=== PATIENT | female | born 1945 | race Caucasian/White ===

== ENCOUNTER 2018-03-13 11:34 | Inpatient (IN) | payer OTHER, MEDICARE ==
[2018-03-13] MEDS ORDERED: NS 1,000 ML IV ONE (12:55)
[2018-03-13 13:28] LABS: PLATELET COUNT 278 10^3/uL (150-400)
[2018-03-13 13:38] LABS: INR 1.09 (0.83-1.16)
--- NOTE | 2018-03-13 13:45 | CPEKG ---
Heart Rate: 61 RR Interval: 984 P-R Interval: 208 QRSD Interval: 80 QT Interval: 428 QTC Interval: 431 P [place]: 59 QRS [place]: -21 T Wave [place]: -11 EKG Severity - BORDERLINE ECG - EKG Impression: SINUS RHYTHM EKG Impression: BORDERLINE LEFT AXIS DEVIATION EKG Impression: BORDERLINE R WAVE PROGRESSION, ANTERIOR LEADS EKG Impression: BORDERLINE T ABNORMALITIES, DIFFUSE LEADS Electronically Signed By: Adebayo Polanco 16-Mar-2018 07:01:30
--- NOTE | 2018-03-13 13:54 | EDPHY ---
H & P Stated Complaint: rectal bleeding started today Time Seen by Provider: 03/13/18 11:40 HPI/ROS: CHIEF COMPLAINT: Rectal bleeding HISTORY OF PRESENT ILLNESS: This is a 72-year-old female with history of significant ulcerative colitis leading to a total colectomy with a ileal pouch about 20 years ago. Patient presents today reporting that she had 2 episodes of bloody stools/diarrhea this morning. The patient's to the stools are quite loose. This morning she went to the bathroom and had large volume of bloody stool. It occurred to 2nd time. She then presents to the emergency department. She has had a history of a similar episode in the past which resulted in stapling procedure performed of her lower rectum or J pouch, patient is not entirely clear. Of note, the patient has recently been started on Xarelto for atrial fibrillation. She denies any fevers or chills, any nausea or vomiting, any urinary complaints , any lightheadedness or headache. Patient had a bowel movement on arrival to the emergency department which is dark brown in color, no blood seen. REVIEW OF SYSTEMS: Aside from elements discussed in the HPI, a comprehensive 10-point review of systems was reviewed and is negative. PAST MEDICAL HISTORY: Atrial fibrillation, status post colectomy, history of atrial fibrillation, on Xarelto as well as propafenone. SOCIAL HISTORY: Nonsmoker. No alcohol. VITAL SIGNS Reviewed by me. Heart rate 65, 114/46. GENERAL: Well-developed, well-nourished, resting comfortably in no respiratory distress. HEENT: Atraumatic. Eyes: No icterus, no injection. Mouth: moist mucous membranes. No erythema or lesions. Neck: supple with no adenopathy. LUNGS: Clear to auscultation bilaterally, no wheezes, rhonchi or rales. CARDIAC: Regular rate and rhythm, no rubs, murmurs or gallops. ABDOMEN: Soft, nontender, nondistended, bowel sounds normal. BACK: No CVA tenderness. RECTAL: External hemorrhoid is present. Brown stool on the glove. EXTREMITIES: No trauma. No edema. Range of motion is normal throughout. NEURO: Alert and oriented, grossly nonfocal. SKIN: Warm and dry, no rash. PSYCHIATRIC: Normal mentation, no agitation. - Personal History Current Tetanus Diphtheria and Acellular Pertussis (TDAP): Unsure - Medical/Surgical History Hx Asthma: No Hx Chronic Respiratory Disease: No Hx Diabetes: No Hx Cardiac Disease: No Hx Renal Disease: No Hx Cirrhosis: No Hx Alcoholism: No Hx HIV/AIDS: No Hx Splenectomy or Spleen Trauma: No Other PMH: a fib, ulcerative colitis status post total colectomy 20 years ago, bowel surgery x 2 stapling - Social History Smoking Status: Never smoked Constitutional: Initial Vital Signs Temperature (C) 37.1 C 03/13/18 11:39 Heart Rate 65 03/13/18 11:39 Respiratory Rate 16 03/13/18 11:39 Blood Pressure 114/64 03/13/18 11:39 O2 Sat (%) 94 03/13/18 11:39 O2 Delivery Mode Room Air Allergies/Adverse Reactions: iodine Allergy (Verified 03/13/18 11:44) Sulfa (Sulfonamide Antibiotics) Allergy (Verified 03/13/18 11:44) Home Medications: Medication Instructions Recorded Acetaminophen [Acetaminophen ER] 650 mg PO BID 03/13/18 Aspirin [Aspirin 325 mg (*)] 325 mg PO DAILY PRN 03/13/18 Cholecalciferol Vit D3 [Vitamin D3 2,000 units PO DAILY 03/13/18 2000 units tab (OTC)] Herbals/Supplements -Info Only 1 ea PO DAILY 03/13/18 Propafenone HCl 225 mg PO Q8 03/13/18 Rivaroxaban [Xarelto] 20 mg PO DAILY18 03/13/18 Medical Decision Making ED Course/Re-evaluation: Stool for occult blood is positive. EKG: Sinus rhythm, poor R-wave progression, T-wave flattening V3 through V6 when compared to prior. IV was placed. Patient received a L normal saline. Labs demonstrate a hemoglobin/hematocrit of 12/35. Chemistries: Normal troponin. Normal electrolytes. Patient had a 2nd bowel movement while in the emergency department which is watery, black stool. Course discussed with Dr Portillo. Patient will be admitted to med surg. Patient requested the transfer by private car. She understands the safest way to be transferred is by ambulance. She has a family member who is a sober, competent adult will drive her to [facility]. We will discharge her to transfer by POV when we have a bed available at the [facility]. I spoke to Dr. Ashwin Mccormack from [facility] who will follow up with the patient in the hospital. Differential Diagnosis: Differential diagnosis of this patient's lower GI bleeding was considered including but not limited to upper GI hemorrhage, rectal bleeding, hemorrhoids, anal fissure, bleeding from ileal pouch. Consult/Admit Bed Type: Dr. Portillo, [facility] - Data Points Laboratory Results: Laboratory Results 03/13/18 13:20 03/13/18 13:20 Medications Given: Acetaminophen (Tylenol) 650 mg PO BID ESTRADA Stop: 09/10/18 08:59 Last Admin: 03/14/18 08:39 Dose: 650 mg Cholecalciferol (Vitamin D) 2,000 units PO DAILY ESTRADA Stop: 09/10/18 08:59 Last Admin: 03/14/18 08:40 Dose: Not Given Dextrose/Sodium Chloride (D5w 1/2 Ns) 1,000 mls @ 100 mls/hr IV CONT ESTRADA Stop: 09/09/18 14:44 Last Admin: 03/14/18 03:05 Dose: 1,000 mls Propafenone HCl (Rythmol Sr) 225 mg PO Q8 ESTRADA Stop: 09/10/18 00:00 Last Admin: 03/14/18 05:10 Dose: 225 mg Discontinued Medications Sodium Chloride (Ns) 1,000 mls @ 0 mls/hr IV ONCE ONE; Wide Open PRN Reason: Protocol Stop: 03/13/18 12:56 Last Admin: 03/13/18 13:33 Dose: 1,000 mls Polyethylene Glycol/Electrolytes (Gavilyte - G) 4,000 ml PO ONCE ONE Stop: 03/13/18 18:34 Last Admin: 03/13/18 18:43 Dose: 4,000 ml Departure - Departure Disposition: [facility] Inpatient Acute Clinical Impression: Lower GI bleeding Condition: Fair
[2018-03-13] MEDS ORDERED: ONDANSETRON DISINTEGRATING 4 MG TAB PO PRN (14:44)
[2018-03-13] MEDS ORDERED: ONDANSETRON 4 MG/2 ML VIAL IVP PRN (14:44)
[2018-03-13] MEDS ORDERED: ACETAMINOPHEN 325 MG TAB PO PRN (14:44)
--- NOTE | 2018-03-13 16:09 | PDGENHP ---
History and Physical - Chief Complaint Acute hematochezia - History of Present Illness Primary care provider: Ernestina JEWELL Primary cards provider: Dr. Carmel Guerrero HPI: 72-year-old female presenting with acute hematochezia characterized as bright red blood per rectum with onset of symptoms this morning, and duration of 1 subsequent, intermittent bloody bowel movement thereafter. She also had associated left lower quadrant discomfort and has had 2 melanotic appearing bowel movements at urgent care. The discomfort is exacerbated by palpation, quiescent at rest. Prior to her onset of symptoms, the patient had otherwise been feeling well and been taking all of her home medications. She reports increased physicality/straining secondary to a recent move. History Information - Allergies/Home Medication List Allergies/Adverse Reactions: iodine Allergy (Verified 03/13/18 11:44) Sulfa (Sulfonamide Antibiotics) Allergy (Verified 03/13/18 11:44) Home Medications: Propafenone HCl [Rythmol 150mg (*)] 225 mg PO Q8H 12/03/14 [Last Taken 12/02/14] Tylenol 03/13/18 [Last Taken Unknown] Xarelto 03/13/18 [Last Taken Unknown] I have personally reviewed and updated: family history, medical history, social history, surgical history - Past Medical History atrial fibrillation (Paroxysmal, on Xarelto and Rythmol, diagnosed in 2013) Additional medical history: Obstructive sleep apnea on CPAP. Ulcerative colitis with previous history of total colectomy and internal ileal pouch with previous history of ileal pouch ulcerations in 2014. Rheumatic fever as a child - Surgical History Additional surgical history: Total colectomy and ileal pouch - Family History Additional family history: Sibling with rectal surgery and partial rectal removal, no family history of GI malignancies - Social History Smoking Status: Never smoked Alcohol Use: Occasionally Drug Use: None Additional social history: Independent in ADLs Review of Systems Review of Systems: ROS: 10pt was reviewed & negative except for what was stated in HPI & below Gastrointestinal: Reports: black stools, rectal bleeding, abdominal pain Physical Exam Physical Exam: Temp Pulse Resp BP Pulse Ox 37.0 C 65 18 118/62 96 03/13/18 15:27 03/13/18 15:27 03/13/18 15:27 03/13/18 15:27 03/13/18 15:27 Constitutional: no apparent distress, appears nourished, not in pain, obese Eyes: PERRL, anicteric sclera, EOMI Ears, Nose, Mouth, Throat: moist mucous membranes, hearing normal, ears appear normal, no oral mucosal ulcers Cardiovascular: regular rate and rhythym, no murmur, rub, or gallop, No edema Respiratory: no respiratory distress, no rales or rhonchi, clear to auscultation Gastrointestinal: normoactive bowel sounds, no palpable masses, tenderness (mild , 2/2 mod-deep palpation LLQ), No guarding, No distension Skin: warm, No erythema, No rash Neurologic: AAOx3, sensation intact bilaterally, No weakness Psychiatric: interacting appropriately, not anxious, not encephalopathic, thought process linear Lab Data & Imaging Review 03/13/18 13:20 03/13/18 13:20 WBC 7.48 10^3/uL (3.80-9.50) 03/13/18 13:20 RBC 4.24 10^6/uL (4.18-5.33) 03/13/18 13:20 Hgb 12.6 g/dL (12.6-16.3) 03/13/18 13:20 Hct 37.6 % (38.0-47.0) L 03/13/18 13:20 MCV 88.7 fL (81.5-99.8) 03/13/18 13:20 MCH 29.7 pg (27.9-34.1) 03/13/18 13:20 MCHC 33.5 g/dL (32.4-36.7) 03/13/18 13:20 RDW 13.2 % (11.5-15.2) 03/13/18 13:20 Plt Count 278 10^3/uL (150-400) 03/13/18 13:20 MPV 8.6 fL (8.7-11.7) L 03/13/18 13:20 Neut % (Auto) 59.3 % (39.3-74.2) 03/13/18 13:20 Lymph % (Auto) 28.2 % (15.0-45.0) 03/13/18 13:20 [place] % (Auto) 9.0 % (4.5-13.0) 03/13/18 13:20 Eos % (Auto) 2.5 % (0.6-7.6) 03/13/18 13:20 Baso % (Auto) 0.7 % (0.3-1.7) 03/13/18 13:20 Nucleat RBC Rel Count 0.0 % (0.0-0.2) 03/13/18 13:20 Absolute Neuts (auto) 4.44 10^3/uL (1.70-6.50) 03/13/18 13:20 Absolute Lymphs (auto) 2.11 10^3/uL (1.00-3.00) 03/13/18 13:20 Absolute Monos (auto) 0.67 10^3/uL (0.30-0.80) 03/13/18 13:20 Absolute Eos (auto) 0.19 10^3/uL (0.03-0.40) 03/13/18 13:20 Absolute Basos (auto) 0.05 10^3/uL (0.02-0.10) 03/13/18 13:20 Absolute Nucleated RBC 0.00 10^3/uL (0-0.01) 03/13/18 13:20 Immature Gran % 0.3 % (0.0-1.1) 03/13/18 13:20 Immature Gran # 0.02 10^3/uL (0.00-0.10) 03/13/18 13:20 PT 14.0 SEC (12.0-15.0) 03/13/18 13:20 INR 1.09 (0.83-1.16) 03/13/18 13:20 Sodium 139 mEq/L (135-145) 03/13/18 13:20 Potassium 4.0 mEq/L (3.3-5.0) 03/13/18 13:20 Chloride 104 mEq/L (97-110) 03/13/18 13:20 Carbon Dioxide 24 mEq/l (22-31) 03/13/18 13:20 Anion Gap 11 mEq/L (8-16) 03/13/18 13:20 BUN 15 mg/dL (7-23) 03/13/18 13:20 Creatinine 0.6 mg/dL (0.6-1.0) 03/13/18 13:20 Estimated GFR > 60 03/13/18 13:20 Glucose 89 mg/dL (70-100) 03/13/18 13:20 Calcium 8.7 mg/dL (8.5-10.4) 03/13/18 13:20 Troponin I < 0.012 ng/mL (0.000-0.034) 03/13/18 13:20 Stool Occult Bld Scrn POSITIVE (NEGATIVE) H 03/13/18 12:15 Visualized and Interpreted EKG results: Yes EKG Interpretation: Positive for: other (Normal sinus rhythm with T-wave inversion in lead 3) Assessment & Plan Assessment: 72-year-old female presenting with acute lower gastrointestinal hemorrhage in the setting of history of ulcerative colitis and previous history of ileal pouch ulcerations Plan: 1. Acute lower gastrointestinal hemorrhage. New problem this provider, further workup indicated. Fecal occult blood positive with 2 bloody bowel movements and 2 potentially melanotic bowel movements on the day of presentation. She is currently hemodynamically stable, but given her ongoing symptoms she warrants urgent endoscopy, particularly given that she experienced ileal pouch ulcerations in 2014. -reviewed outside records including 12/04/[address] Julio Adam, he recounts the patient had ileal pouch ulcerations requiring epinephrine and surgical clipping by Dr. Jennifer Araujo, and the patient was discharged with outpatient follow-up and recommendations to hold her Xarelto -will hold Xarelto -discussed with Dr. Mccormack, he recommends bowel prep for possible EGD/colonoscopy in AM -continue on clears and NPO after midnight -monitor hemoglobin level and if dropping after receiving IV fluids, then monitor more closely for potential acute blood loss anemia -check CRP and ESR to ensure this is not an ulcerative colitis recurrence -if increased abd pain, will get CT w/ IV contrast 2. Atrial fibrillation. Paroxysmal, hold Xarelto, continue Rythmol, continue monitoring on telemetry Diet. Clears, NPO after midnight Prophylaxis. High risk patient, SCDs, hold Xarelto Code. Full Disposition. Anticipated discharge is 03/14, pending further evaluation as outlined above.
[2018-03-13] MEDS: D5W 1/2 NS 1,000 ML IV SCH (17:49)
[2018-03-13] MEDS ORDERED: PEG 3350/NA SULF,BICARB,CL/KCL (GAVILYTE-G) 4000 ML BTL PO ONE (18:33)
[2018-03-14] MEDS: PROPAFENONE HCL SR 225 MG CAP PO SCH ×4 (00:16→21:01)
[2018-03-14] MEDS: D5W 1/2 NS 1,000 ML IV SCH (03:05)
[2018-03-14] MEDS: ACETAMINOPHEN 325 MG TAB PO SCH ×2 (08:39→21:01)
[2018-03-14] MEDS: CHOLECALCIFEROL VIT D3 2,000 UNITS TAB/CAP PO SCH (08:40)
[2018-03-14] MEDS ORDERED: Herbals/Supplements -Info Only PO SCH (09:00)
--- NOTE | 2018-03-14 09:58 | ASMTCASEMG ---
Living Arrangements What is your living Answers: Alone arrangement? Who do you live with? Type Of Residence What kind of residence do Answers: House you live in? Discharge Plan Comments Coordination Status Comments Notes: Pt is a 72 y/o female admitted with a lower GI bleed. Pt will most likely d/c independent when medically stable. No therapies ordered at this time. CM available for changes. Plan: Independent Date Signed: 03/14/2018 09:57 AM Electronically Signed By:ANANYA Cuenca
--- NOTE | 2018-03-14 11:48 | HOSPPROG ---
Hospitalist Progress Note Assessment/Plan: Patient is a 72-year-old female who presented the ER emergency room with hematochezia. She also had some left lower quadrant discomfort. Today is my 1st encounter with the patient. Chart reviewed. *Acute lower gastrointestinal hemorrhage - ileal pouch ulcerations in 2014 -she will get a endoscopy and colonoscopy today -sed rate and C reactive protein are stable * paroxysmal atrial fibrillation -currently in sinus -Xarelto on hold Disposition. Pending, will await results from procedures. Subjective: Nani didn't get any sleep last night, hoping to go home today. Objective: Vital Signs Temp Pulse Resp BP Pulse Ox 36.6 C 60 20 123/69 H 94 03/14/18 11:07 03/14/18 11:07 03/14/18 11:07 03/14/18 11:07 03/14/18 11:07 Laboratory Results 03/14/18 04:41 03/14/18 04:41 03/13/18 03/14/18 03/15/18 05:59 05:59 05:59 Intake Total 2700 Balance 2700 PT 14.0 SEC (12.0-15.0) 03/13/18 13:20 INR 1.09 (0.83-1.16) 03/13/18 13:20 - Physical Exam Constitutional: no apparent distress, appears nourished, not in pain Eyes: PERRL Ears, Nose, Mouth, Throat: hearing normal Cardiovascular: regular rate and rhythym, no murmur, rub, or gallop Respiratory: no respiratory distress Skin: warm, No normal color (pale) Musculoskeletal: full muscle strength Neurologic: AAOx3 Psychiatric: interacting appropriately ICD10 Worksheet Patient Problems: Problems Problem Status Onset Lower GI bleeding Acute Anemia Acute
[2018-03-14] MEDS ORDERED: LR 1,000 ML IV ONE (13:17)
--- NOTE | 2018-03-14 13:41 | PDANEPAE ---
ANE History of Present Illness 72 yo for egd/colonoscopy ANE Past Medical History - Cardiovascular History Hx Arrhythmias: Yes - Pulmonary History Hx Oxygen in Use at Home: No Hx Sleep Apnea: Yes Sleep Apnea Screening Result - Last Documented: Positive - Endocrine History Hx Diabetes: No - Chronic Pain History Chronic Pain: No ANE Review of Systems Review of Systems: - Exercise capacity METS (RN): 4 METS ANE Patient History - Allergies Allergies/Adverse Reactions: iodine Allergy (Verified 03/13/18 11:44) Sulfa (Sulfonamide Antibiotics) Allergy (Verified 03/13/18 11:44) - Home Medications Home medications: home medication list seen and reviewed Home Medications: Acetaminophen [Acetaminophen ER] 650 mg PO BID 03/13/18 [Last Taken 03/13/18 08: 00] Aspirin [Aspirin 325 mg (*)] 325 mg PO DAILY PRN 03/13/18 [Last Taken 03/12/18] Cholecalciferol Vit D3 [Vitamin D3 2000 units tab (OTC)] 2,000 units PO DAILY [Last Taken Unknown] Herbals/Supplements -Info Only 1 ea PO DAILY 03/13/18 [Last Taken Unknown] Propafenone HCl 225 mg PO Q8 03/13/18 [Last Taken 03/13/18 08:00] Rivaroxaban [Xarelto] 20 mg PO DAILY18 03/13/18 [Last Taken 03/12/18] - NPO status NPO Since - Liquids (Date): 03/14/18 NPO Since - Liquids (Time): 00:00 NPO Since - Solids (Date): 03/13/18 NPO Since - Solids (Time): 00:00 - Smoking Hx Smoking Status: Never smoked - Alcohol Use Alcohol Use: Occasionally ANE Labs/Vital Signs - Labs Result Diagrams: 03/14/18 04:41 03/14/18 04:41 - Vital Signs Blood Pressure: 119/67 Heart Rate: 61 Respiratory Rate: 20 O2 Sat (%): 93 Height: 5 ft 2 in Weight: 98.5 kg ANE Physical Exam - Airway Mallampati Score: Class 2 Mouth exam: normal dental/mouth exam - Pulmonary Pulmonary: no respiratory distress - Cardiovascular Cardiovascular: regular rate and rhythym - ASA Status ASA Status: III ANE Anesthesia Plan Anesthesia Plan: GA with mask
[2018-03-14] MEDS ORDERED: PROPOFOL 200 MG/20 ML VIAL ONE (13:43)
[2018-03-14] MEDS ORDERED: MIDAZOLAM 2 MG/2 ML VIAL ONE (13:50)
[2018-03-14] MEDS ORDERED: MIDAZOLAM 2 MG/2 ML VIAL IVP ONE (13:50)
--- NOTE | 2018-03-14 14:39 | GIREPORT ---
[facility] - Endoscopy Department Patient Name: Nani Garcia Procedure Date: 03/14/2018 1:51 PM Patient Type: Inpatient Attending MD/ ER Physician: Ashwin Mccormack MD Procedure: Upper GI endoscopy Indications: Melena Patient Profile: 72 year old female presents for evaluation of GI bleed. Providers: Ashwin Mccormack MD Medicines: Monitored Anesthesia Care Complications: No immediate complications. Estimated blood loss: Minimal. Description of Procedure: After obtaining informed consent, the endoscope was passed under direct vision. Throughout the procedure, the patient's blood pressure, pulse, and oxygen saturations were monitored continuously. The Endoscope was intro duced through the mouth, and advanced to the second part of duodenum. The [facility] er GI endoscopy was accomplished without difficulty. The patient tolerated th e procedure well. Findings: The Z-line was irregular. Biopsies were taken with a cold forceps for histology. A hiatal hernia was present. A few small sessile polyps were found on the greater curvature of the stomach. Patchy mildly erythematous mucosa was found in the gastric body and in the gastric antrum. Biopsies were taken with a cold forceps for histology. The examined duodenum was normal. Estimated Blood Loss: Estimated blood loss was minimal. Post Op Diagnosis: - Z-line irregular. Biopsied. - Hiatal hernia. - A few gastric polyps. - Erythematous mucosa in the gastric body and antrum. Biopsied. - Normal examined duodenum. - No blood seen during examination - Etiology? No source found. Proceed with pouchoscopy. Recommendation: - Await pathology results. - More recommendations on pouchoscopy report. - Thank you for allowing me to participate in the care of your patient. Attending Participation: I personally performed the entire procedure. Ashwin Mccormack MD Ashwin Mccormack MD 03/14/2018 2:39:16 PM This report has been signed electronicallyAshwin Mccormack MD Number of Addenda: 0 Note Initiated On: 03/14/2018 1:51 PM [email or web address]
--- NOTE | 2018-03-14 16:20 | GIREPORT ---
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 Providers: Ashwin Mccormack MD Medicines: Monitored Anesthesia Care Complications: No immediate complications. Estimated blood loss: Minimal. Description of Procedure: After obtaining informed consent, the endoscope was passed under direct vision. Throughout the procedure, the patient's blood pressure, pulse, and oxygen saturations were monitored continuously. The Colonoscope was introduced through the anus and advanced to the salma-terminal ileum. Aft er obtaining informed consent, the endoscope was passed under direct visio n. Throughout the procedure, the patient's blood pressure, pulse, and oxyg en saturations were monitored continuously.The procedure was performed wit hout difficulty. The patient tolerated the procedure well. The quality of th e bowel preparation was good. Findings: The perianal and digital rectal examinations were normal. Pertinent negatives include no palpable rectal lesions. The ileoanal pouch and ileocolonic anastomosis contained multiple ulcer s. The ileoanal pouch contained a single (solitary) three mm ulcer which w as actively bleeding. Spurting bleeding was present. To stop active bleedi ng, one hemostatic clip was successfully placed. There was no bleeding at t he end of the procedure. Estimated Blood Loss: Estimated blood loss was minimal. Post Op Diagnosis: - Multiple ulcers in the ileoanal pouch and at the ileocolonic anastomo sis. - One of the ulcers in the ileoanal pouch was actively bleeding. Clip w as placed. - Ileum was normal. Recommendation: - [facility]. - Clear liquid diet. - Continue medications. - Monitor H/H - Thank you for allowing me to participate in the care of your patient. Attending Participation: I personally performed the entire procedure. Ashwin Mccormack MD Ashwin Mccormack MD 03/14/2018 4:20:13 PM This report has been signed electronicallyAshwin Mccormack MD Number of Addenda: 0 Note Initiated On: 03/14/2018 1:51 PM [email or web address]
--- NOTE | 2018-03-14 17:05 | GCON ---
[f rep st] CONSULTATION DATE OF CONSULTATION: 03/14/2018 REFERRING PHYSICIAN: Jose Portillo MD REASON FOR CONSULTATION: Blood in stools. CHIEF COMPLAINT: Blood in stools. 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 The patient states that she had several episodes of bright red blood per rectum, as well as having some that were darker in nature on the day of admission. She also has complaints of a crampy lower quadrant abdominal discomfort for the last week. This pain is worse on palpation and is not related to bowel movements. She denies any alleviating factors. The patient had a prior episode of GI bleeding on 12/25/2014 and underwent a pouchoscopy, where she was found to have ulcers in her ileal pouch. One of the ulcers was bleeding, and a clip was placed. I am being asked by Dr. Portillo to see the patient in consultation regarding her blood in stools. PAST MEDICAL HISTORY: 1. Vann ulcerative colitis, status post colectomy. 2. Atrial fibrillation, on Xarelto. 3. Rheumatic fever. 4. Obstructive sleep apnea, on CPAP. PAST SURGICAL HISTORY: Ileoanal J-pouch in 1996. FAMILY HISTORY: Brother had a rectal surgery. SOCIAL HISTORY: Social alcohol. No significant tobacco use. ALLERGIES: Sulfa and iodine. MEDICATIONS: Xarelto, Tylenol, propafenone HCL. REVIEW OF SYSTEMS: A 14-point comprehensive review of systems was asked. Her pertinent positives and negatives per HPI. PHYSICAL EXAMINATION: VITALS: Blood pressure 119/67, heart rate 61, temperature 37, respirations 20. GENERAL: Awake, alert, oriented x3, in no distress. HEENT: Anicteric. Moist mucosa. NECK: No JVD. CARDIOVASCULAR: Regular rate and rhythm, positive S1, S2. No murmurs or gallops are appreciated. LUNGS: Clear to auscultation bilaterally. No wheezes or rhonchi. ABDOMEN: Soft, tender in the left lower quadrant, positive bowel sounds. Positive surgical scar. No guarding. No rebound. EXTREMITIES: No cyanosis, clubbing, or edema. NEUROLOGIC: 2 through 12 grossly intact. PSYCH : Normal affect. SKIN: No rash. LYMPH: No lymphadenopathy. MUSCULOSKELETAL : No obvious joint deformities. LABORATORY DATA: Hemoglobin 12.2, hematocrit 37.0, WBCs 7.4. ESR 9. INR 1.09. Sodium 143, potassium 4, chloride 107, bicarb 27, BUN 9, creatinine 0.6. C-reactive protein less than 5. ASSESSMENT/PLAN: 1. Blood in stools.- Does have some complaints of having dark stools, as well as hematochezia. At this time, I recommend to proceed with upper endoscopy with colonoscopy to delineate the cause of her symptoms. The risks, benefits, and alternatives of the procedure explained in detail to the patient. The risks of infection, bleeding, perforation, and sedation were discussed. Due to obstructive sleep apnea, as well as atrial fibrillation, she is at increased risk of sedation, and this was discussed with her. We will plan to proceed with procedure with anesthesiology support. 2. Atrial fibrillation. 3. Rheumatic fever as a child. 4. Obstructive sleep apnea. Thank you very much for this consultation. /[id number]/MODL MTDD
[2018-03-15] MEDS: PROPAFENONE HCL SR 225 MG CAP PO SCH (05:00)
[2018-03-15 07:37] VITALS: BP 93/58
--- NOTE | 2018-03-15 08:23 | PDMN ---
Medical Necessity Medical necessity: Change to IP, as of 03/14/18, per PSYCHOLOGY LECTURER; los >2 mn for ongoing management of acute lower GI hemorrhage; s/p endoscopy/colonoscopy; pt at increased risk of bleeding from being on Xarelto; admit for further close monitoring & follow-up H&H; hx AFIB on AC, total colectomy & ileal pouch; per progress note & order 03/14/18
[2018-03-15] MEDS: ACETAMINOPHEN 325 MG TAB PO SCH (08:50)
[2018-03-15] MEDS: CHOLECALCIFEROL VIT D3 2,000 UNITS TAB/CAP PO SCH (08:50)
--- NOTE | 2018-03-15 10:38 | HOSPPROG ---
Hospitalist Progress Note Assessment/Plan: Patient is a 72-year-old female who presented the ER emergency room with hematochezia. She also had some left lower quadrant discomfort. *Acute lower gastrointestinal hemorrhage - ileal pouch ulcerations in 2015 -status post endoscopy and colonoscopy. She has a positive hiatal hernia. In addition she has a bleeding ulcer in the ileal anal pouch with clip placement -reviewed her care with Gastroenterology. She does not need a PPI. Recommendation is to restart anticoagulation another day or so -sed rate and C reactive protein are stable * paroxysmal atrial fibrillation -currently in sinus -Xarelto on hold Disposition. Will recheck an H&H to assure stability prior to discharge patient is very anxious that she may rebleed. Will have her follow up with her primary care provider next week and also with Cardiology for further evaluation. Subjective: Nani is feeling fine, but has many concerns. Objective: Vital Signs Temp Pulse Resp BP Pulse Ox 36.6 C 75 16 93/58 L 92 03/15/18 07:34 03/15/18 07:34 03/15/18 07:34 03/15/18 07:34 03/15/18 07:34 Laboratory Results 03/15/18 04:28 03/14/18 04:41 03/14/18 03/15/18 03/16/18 05:59 05:59 05:59 Intake Total 2700 800 Output Total 1 Balance 2700 799 PT 14.0 SEC (12.0-15.0) 03/13/18 13:20 INR 1.09 (0.83-1.16) 03/13/18 13:20 - Physical Exam Constitutional: no apparent distress, appears nourished, not in pain Eyes: PERRL Ears, Nose, Mouth, Throat: hearing normal Cardiovascular: regular rate and rhythym Respiratory: no respiratory distress Skin: warm Musculoskeletal: full muscle strength Neurologic: AAOx3 Psychiatric: interacting appropriately ICD10 Worksheet Patient Problems: Problems Problem Status Onset Lower GI bleeding Acute Anemia Acute
--- NOTE | 2018-03-15 11:13 | GDS ---
[f rep st] DISCHARGE SUMMARY DISCHARGE DIAGNOSES: 1. 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 2. Paroxysmal atrial fibrillation. CONSULTATION: Dr. Ashwin Mccormack. HISTORY: Briefly, the patient is a 72-year-old female who presented to the emergency room with a lower GI bleed. She has a history of ulcerative pancolitis with a total colectomy and ileoanal J-pouch formation in 1996. She was noting that she was having bright red blood per rectum, and then her stools became darker. She had a prior episode of a GI bleed on December 25, 2014, and underwent a proctoscopy where she was found to have ulcers in her ileal pouch. One of her ulcers was bleeding, and the clip was placed. On this admission, she had a pouchoscopy performed. It noted that she had multiple ulcers in the ileoanal pouch and at the ileocolonic anastomosis. One of the ulcers in the ileoanal pouch was actively bleeding. A clip was placed. Her hemoglobin and hematocrit are stable. Will recheck 1 more time prior to discharge to assure stability. HOSPITAL COURSE: 1. Acute lower GI bleed. This is secondary to an ulcer in the ileoanal pouch with clip placement. She is stable. A sed rate and C-reactive protein levels were checked, which were noted to be stable. 2. Paroxysmal atrial fibrillation. She has been in sinus rhythm. Her Xarelto is on hold. I have recommended for her to further discuss with her primary care doctor and her mechanical detailer that she may be a candidate for the Watchman procedure since she has had 2 gastrointestinal bleeds. DISCHARGE CONDITION: Stable. Blood pressure is 121/65. Heart rate is 78, respiratory rate of 16, O2 sats on room air 92%. Temperature is 36.3 Celsius. DISCHARGE MEDICATIONS: Please see the EMR. DISCHARGE INSTRUCTIONS: 1. To avoid all NSAIDs. She takes aspirin intermittently. 2. To start her Xarelto on Sunday. 3. If she has further bleeding, return to the ER. 4. To get a repeat hemoglobin/hematocrit on Sunday with her primary care provider to assure stability. 5. To talk with her mechanical detailer about the possibility of the Watchman procedure due to recent bleeding and being on Xarelto. Copy requested to: PCP /[id number]/MODL MTDD
== END 2018-03-15 11:23 | disposition home or self-care (01) | DRG 394 ==
LOC: CED 11:34 → CEDHOLD 14:39 → OBSVTOIN 14:46 → F3E 17:02
PROVIDERS: ADMIT Internal Medicine; ATTEND Student in an Organized Health Care Education/Training Program
PROC: 0W3P8ZZ Control Bleeding in Gastrointestinal Tract, Via Natural or Artificial Opening Endoscopic (ICD-10-PCS; principal; 2018-03-14 14:00)
PROC: 0DB58ZX Excision of Esophagus, Via Natural or Artificial Opening Endoscopic, Diagnostic (ICD-10-PCS; principal; 2018-03-14 14:00)
PROC: 0DJ08ZZ Inspection of Upper Intestinal Tract, Via Natural or Artificial Opening Endoscopic (ICD-10-PCS; principal; 2018-03-14 14:00)
PROC: 0DB68ZX Excision of Stomach, Via Natural or Artificial Opening Endoscopic, Diagnostic (ICD-10-PCS; principal; 2018-03-14 14:00)
DX: K91.858 Other complications of intestinal pouch (principal); K63.3 Ulcer of intestine; K92.2 Gastrointestinal hemorrhage, unspecified; K28.3 Acute gastrojejunal ulcer without hemorrhage or perforation; K31.7 Polyp of stomach and duodenum; I48.0 Paroxysmal atrial fibrillation; Z79.01 Long term (current) use of anticoagulants; Z90.49 Acquired absence of other specified parts of digestive tract; G47.33 Obstructive sleep apnea (adult) (pediatric)
CPT/HCPCS: 80048-PO; 82270-PO; 84484-PO; 85025-PO; 85610-PO; G0378; J2250; J2704

== ENCOUNTER 2019-01-05 23:19 | Observation (INO) | payer OTHER, MEDICARE ==
[2019-01-06] MEDS ORDERED: NS 1,000 ML IV ONE (01:16)
[2019-01-06 01:20] LABS: PLATELET COUNT 323 10^3/uL (150-400)
--- NOTE | 2019-01-06 01:22 | EDPHY ---
H & P Stated Complaint: BLOOD IN STOOL Time Seen by Provider: 01/06/19 00:58 HPI/ROS: HPI The patient presents with bright red blood per rectum which has been present since this morning. Patient has at about 4 episodes. Initially this morning she noticed blood in the toilet bowl, however now is having clots of blood with each bowel movement. She was started on Plavix about 3 weeks ago. Previously she was taking Eliquis. She underwent watch min procedure in the fall. She has a history of ulcerative colitis status post total colectomy with in internal ileal pouch. She has had pouchitis before, most recently in February of 2018 which required endoscopy and stapling. For the last several days she has had left lower quadrant pain. This is described as a cramping sensation. She saw her foam charger Dr. Araujo who started her on metronidazole with plan for outpatient colonoscopy. REVIEW OF SYSTEMS 10 systems were reviewed and negative with the exception of the elements mentioned in the history of present illness. PMHx: Ulcerative colitis, status post total colectomy with internal ileal pouch complicated by ulcerations; atrial fibrillation on Plavix status post Watchman procedure Soc Hx: Housed PHYSICAL General Appearance: Alert, no distress Eyes: Pupils equal and round no pallor or injection ENT, Mouth: Mucous membranes moist Respiratory: There are no retractions, lungs are clear to auscultation Cardiovascular: Regular rate and rhythm Gastrointestinal: Abdomen is soft and non-tender, no masses, bowel sounds normal Neurological: A&O, moves all extremities Skin: Warm and dry, no rashes Musculoskeletal: Neck is supple non tender Extremities: symmetrical, full range of motion Psychiatric: Patient is oriented X 3, there is no agitation Source: Patient Exam Limitations: No limitations - Personal History Current Tetanus Diphtheria and Acellular Pertussis (TDAP): Unsure - Medical/Surgical History Hx Asthma: No Hx Chronic Respiratory Disease: No Hx Diabetes: No Hx Cardiac Disease: Yes Hx Renal Disease: No Hx Cirrhosis: No Hx Alcoholism: No Hx HIV/AIDS: No Hx Splenectomy or Spleen Trauma: No Other PMH: a fib, ulcerative colitis status post total colectomy 20 years ago, bowel surgery x 2 stapling - Social History Smoking Status: Never smoked Constitutional: Initial Vital Signs Temperature (C) 36.6 C 01/05/19 23:28 Heart Rate 80 01/05/19 23:28 Respiratory Rate 16 01/05/19 23:28 Blood Pressure 134/74 H 01/05/19 23:28 O2 Sat (%) 95 01/05/19 23:28 O2 Delivery Mode Room Air Allergies/Adverse Reactions: iodine Allergy (Verified 03/13/18 11:44) Sulfa (Sulfonamide Antibiotics) Allergy (Verified 03/13/18 11:44) Home Medications: Medication Instructions Recorded Acetaminophen [Acetaminophen ER] 650 mg PO BID 03/13/18 Cholecalciferol Vit D3 [Vitamin D3 2,000 units PO DAILY 03/13/18 2000 units tab (OTC)] Herbals/Supplements -Info Only 1 ea PO DAILY 03/13/18 Propafenone HCl 225 mg PO Q8 03/13/18 Furosemide 01/05/19 Plavix 01/05/19 Spironolactone 01/05/19 Medical Decision Making Differential Diagnosis: This is a 73-year-old female with ulcerative colitis with history of total colectomy in internal ileal pouch that has been complicated by pouch itis, who is on Plavix for the last 3 weeks for atrial fibrillation, presenting today with left lower quadrant abdominal pain and bright red blood per rectum. Here, her vital signs are normal and she is generally well-appearing. She does not have any abdominal tenderness on exam. She has ongoing hematochezia, passing blood clots. I am concerned that she has recurrent pouchitis, complicated by her anticoagulant use. I plan for basic lab testing, IV fluids, admission to the hospital, GI consult. I discussed the case with Dr. Araujo who recommends NPO and bowel prep for likely colonoscopy in the morning. I consulted with Dr. Honeycutt of the hospitalist service and we will admit the patient. - Data Points Laboratory Results: Laboratory Results 01/06/19 00:30 01/06/19 00:30 01/06/19 01/06/19 01/06/19 01:18 00:30 00:30 WBC 8.19 10^3/uL 10^3/uL (3.80-9.50) RBC 4.49 10^6/uL 10^6/uL (4.18-5.33) Hgb 13.1 g/dL g/dL (12.6-16.3) Hct 39.9 % % (38.0-47.0) MCV 88.9 fL fL (81.5-99.8) MCH 29.2 pg pg (27.9-34.1) MCHC 32.8 g/dL g/dL (32.4-36.7) RDW 13.9 % % (11.5-15.2) Plt Count 323 10^3/uL 10^3/uL (150-400) MPV 9.0 fL fL (8.7-11.7) Neut % (Auto) 61.5 % % (39.3-74.2) Lymph % (Auto) 26.5 % % (15.0-45.0) [place] % (Auto) 8.1 % % (4.5-13.0) Eos % (Auto) 2.8 % % (0.6-7.6) Baso % (Auto) 0.6 % % (0.3-1.7) Nucleat RBC Rel Count 0.0 % % (0.0-0.2) Absolute Neuts (auto) 5.04 10^3/uL 10^3/uL (1.70-6.50) Absolute Lymphs (auto) 2.17 10^3/uL 10^3/uL (1.00-3.00) Absolute Monos (auto) 0.66 10^3/uL 10^3/uL (0.30-0.80) Absolute Eos (auto) 0.23 10^3/uL 10^3/uL (0.03-0.40) Absolute Basos (auto) 0.05 10^3/uL 10^3/uL (0.02-0.10) Absolute Nucleated RBC 0.00 10^3/uL 10^3/uL (0-0.01) Immature Gran % 0.5 % % (0.0-1.1) Immature Gran # 0.04 10^3/uL 10^3/uL (0.00-0.10) Sodium 139 mEq/L mEq/L (135-145) Potassium 3.7 mEq/L mEq/L (3.5-5.2) Chloride 109 mEq/L mEq/L (97-110) Carbon Dioxide 20 mEq/l L mEq/l (22-31) Anion Gap 10 mEq/L mEq/L (6-14) BUN 15 mg/dL mg/dL (7-23) Creatinine 0.8 mg/dL mg/dL (0.6-1.0) Estimated GFR > 60 Glucose 136 mg/dL H mg/dL (70-100) Calcium 9.3 mg/dL mg/dL (8.5-10.4) Stool Occult Bld Scrn POSITIVE H (NEGATIVE) Medications Given: Sodium Chloride (Ns) 1,000 mls @ 75 mls/hr IV CONT ESTRADA Stop: 01/06/19 16:19 Last Admin: 01/06/19 03:54 Dose: 1,000 mls Metronidazole/Sodium Chloride (Flagyl 500 Mg (Premix)) 100 mls @ 100 mls/hr IV Q8H ESTRADA PRN Reason: Protocol Stop: 02/05/19 04:29 Last Admin: 01/06/19 04:51 Dose: 100 mls Ceftriaxone Sodium/Dextrose (Rocephin 1 Gm (Premix)) 50 mls @ 100 mls/hr IV Q24H ESTRADA PRN Reason: Protocol Stop: 02/05/19 03:59 Last Admin: 01/06/19 04:00 Dose: 50 mls Discontinued Medications Sodium Chloride (Ns) 1,000 mls @ 0 mls/hr IV EDNOW ONE; Wide Open PRN Reason: Protocol Stop: 01/06/19 01:17 Last Admin: 01/06/19 01:26 Dose: 1,000 mls Polyethylene Glycol/Electrolytes (Gavilyte - G) 4,000 ml PO ONCE ONE Stop: 01/06/19 04:01 Last Admin: 01/06/19 04:51 Dose: 4,000 ml Departure - Departure Disposition: [facility] Inpatient Acute Clinical Impression: Lower GI bleeding, Anticoagulant long-term use Ulcerative colitis Qualifiers: Ulcerative colitis location: unspecified ulcerative colitis location Digestive disease complication type: other complication Qualified Code(s): K51.918 - Ulcerative colitis, unspecified with other complication Condition: Fair
[2019-01-06] MEDS ORDERED: ONDANSETRON 4 MG/2 ML VIAL IVP PRN (02:47)
[2019-01-06] MEDS ORDERED: ONDANSETRON DISINTEGRATING 4 MG TAB PO PRN (02:47)
[2019-01-06] MEDS ORDERED: ACETAMINOPHEN 325 MG TAB PO PRN (02:47)
[2019-01-06] MEDS ORDERED: NS 1,000 ML IV SCH (03:00)
[2019-01-06] MEDS ORDERED: PEG 3350/NA SULF,BICARB,CL/KCL (GAVILYTE-G) 4000 ML BTL PO ONE (04:00)
--- NOTE | 2019-01-06 05:21 | GHP ---
[f rep st] HISTORY AND PHYSICAL DATE OF ADMISSION: 01/06/2019 ROOF TRUSS DETAILER: Dr. Araujo. SOURCE: Patient provides history, appears reliable. EMR was reviewed and case discussed with ED pro vider. CHIEF COMPLAINT: Rectal bleeding, left lower quadrant abdominal pain. HISTORY OF PRESENT ILLNESS: This is a very pleasant 73-year-old female with past medical history sig nificant for ulcerative colitis, status post total colectomy and subsequent reanastomosis with ileal pouch, paroxysmal atrial fibrillation on Plavix, NOYR on CPAP, who [facility] with complaints of rectal bleeding with passage of clots over the last several hours before a rrival. Patient notes that she has been experiencing left lower quadrant abdominal pain over the las t several weeks. She did see Dr. Araujo a few days ago in clinic and she was started on Flagyl. Her pain has persisted intermittent. The patient has also noted in the last 24 hours, increased abdo brendan distention, bloating. The patient denies any recent traveling. She denies any fevers but has been complaining of just feeling cold since arrival to the ER. She denies any sweats. She has had s ome nausea without vomiting. The patient reports passage of clots and blood with her stool, but no w atery diarrhea. The patient reports she has not had anything to eat since 2 p.m. and her last dose o f Plavix was taken in the morning. The patient does have a history of rectal bleeding due to a bleed ing ulcer at the ileoanal junction based on the previous hospital stay in February 2018. Patient did unde rgo a colonoscopy and EGD. She did have an active bleeder clipped and she has not had any issues sin ce that time. REVIEW OF SYSTEMS: Ten systems reviewed, negative except as noted above. SKIN: The patient reports she has been experiencing redness and swelling in the right lower extremity. She states she went to the PCPs office and was prescribed a topical steroid as she notes she had been already on oral antib iotics. No additional antibiotics were given to her. She has slowly noticed some improvement in her swelling in the right lower extremity. She denies any known injuries or open sores. ALLERGIES: Sulfa, iodine. HOME MEDICATIONS: Pending pharmacy evaluation, currently available listing is spironolactone, Plavix , furosemide, propafenone, vitamin D3 2000 unit tab daily, Tylenol p.r.n. PAST MEDICAL HISTORY: Significant for ulcerative colitis, status post total colectomy with ileal mago nastomosis and history of ileal pouch ulcerations and bleeding, history of paroxysmal atrial fibrilla tion on Plavix, no longer on anticoagulation due to bleeding, NORY on CPAP, history of rheumatic fever . PAST SURGICAL HISTORY: Significant for Watchman procedure in July 2018, colonoscopy, EG D, total colectomy with an internal ileal pouch as well as a colonoscopy resulting in banding. FAMILY HISTORY: Sibling with rectal surgery. No GI malignancies known. SOCIAL HISTORY: Patient lives alone. She has a daughter in town. She drinks very rare alcohol, les s than once per month. No tobacco or illicit drugs reported. No marijuana. CODE STATUS: Full. PHYSICAL EXAMINATION: VITAL SIGNS: Upon arrival to the ED, blood pressure of 134/74, heart rate 80, respiratory rate 16, O2 saturation 95% on room air, temperature 36.6. Current vitals available: Bl ood pressure is 108/59, heart rate 73, respiratory rate 16, O2 saturation 95% on room air, temperatur e 36.6. GENERAL: No acute distress. Pleasant, adult female is resting comfortably in bed. The pat ient is obese, but not chronically ill-appearing. She does appear a little bit pale but otherwise in good spirits. HEAD: Normocephalic, atraumatic. EYES: Extraocular muscles grossly intact. Pupils equal, round, with slightly decreased reactivity to light bilaterally, but symmetric. No scleral ic terus or conjunctival injection. ENT: Mucous membranes appear moist. No oropharyngeal erythema or exudates. Dentition intact. NECK: Supple. Trachea midline. CV: Irregularly irregular rhythm wit h a rate in the 60s to 70s. No murmurs, rubs, or gallops appreciated. RESPIRATORY: Unlabored breat carlito. Lungs are clear to auscultation bilaterally. No wheezes, rales, or rhonchi. ABDOMEN: Obese, soft, mildly distended. No masses appreciated. Patient does have multiple well-healed surgical sca rs midline. Hypoactive bowel sounds present. The patient without any tenderness to palpation. No r ebound, guarding, or masses appreciated. : No suprapubic tenderness to palpation. No Kyle hima ter in place. EXTREMITIES: Patient with some with a large area erythema on the anterior baeza with t enderness and trace pretibial pitting. Tenderness on palpation. Patient able to move all extremitie s. Sits up independently. NEURO: Grossly nonfocal. No facial drooping. Moves all extremities. P SYCH: Thought process, content, and questions are all appropriate. Patient is pleasant and cooperati ve. Slightly anxious. LABORATORY STUDIES: WBCs 8.19, H and H is 13.1 and 39.3, MCV of 88.9, platelet count is 323. No ban ds. Sodium is 139, potassium 3.7, chloride 109, CO2 20, anion gap 10, BUN 15, creatinine 0.8. GFR g reater than 60, glucose is 136, calcium 9.3. Positive occult stool. EKG reviewed myself shows a sinus rhythm in the 70s with PACs. Borderline left axis deviation. The patient with T-wave inversion in lead III, nonspecific change aVF. QTc is 572. ASSESSMENT/PLAN: A pleasant 73-year-old female with history of ulcerative colitis, status post total colectomy, paroxysmal atrial fibrillation on Plavix, who presents to the emergency department today with complaints of rectal bleeding for several hours and persistent left lower quadrant pain for the past week and a half. 1. Rectal bleeding. High suspicion for a recurrence of patient's bleeding ulcerations at the distal bowel. Patient does have a history of ileal rectal line ulcerations which previously had required c lipping. Case was discussed with Dr. Araujo from the emergency department with ED provider and re commend preparations for colonoscopy sometime tomorrow. The patient has been n.p.o. since 2 p.m. Di scussed use of bowel prep, which patient is amenable to completing. Given she has no colon, anticipa te she will require the full 4 L of GoLYTELY, so will aim for clear stool output. We will monitor H and H for any signs of anemia. Holding Plavix. Patient reports her last dose was taken yesterday mo rning. 2. Left lower quadrant abdominal pain, possibly related to patient's history of ulcerations and susp ected active bleeding versus enteritis. Patient was started on Flagyl as an outpatient, which we amaury l continue IV for now pending additional GI recommendations. We will also add coverage with Rocephin with given patient's complaint of a right lower extremity cellulitis for additional enteropathogen c overage. 3. Abdominal pain, intermittent cramping. The patient is tolerating pain management p.r.n. 4. Ulcerative colitis, status post total colectomy. 5. Paroxysmal atrial fibrillation. The patient is on Plavix for history of a Watchman procedure whi ch will be held. Exam reveals an irregularly irregular rhythm. EKG showed a sinus rhythm with PACs. Patient is concerned that in setting of preparations for a lower endoscopy, that she may develop ex acerbation of her atrial fibrillation. Will place patient on cardiac monitors. Continue with some I V fluids while patient is n.p.o. 6. Hyperglycemia, mild. No previous history of diabetes. No active treatments at this time. Patie nt should follow up with primary provider. 7. Fluids, electrolytes, nutrition. IV fluids overnight. Electrolyte monitoring replacement if nee ded. N.p.o. status pending endoscopy. 8. Prophylaxis. Sequential compression devices as tolerated. Holding any anticoagulation due to celine ye's history of bleeding. 9. Cold status. Full. 10. Disposition. Patient admitted to observation status on the [facility] floor pending additional int ervention and speciality team recommendations. /[id number]/MODL
[2019-01-06] MEDS ORDERED: DOXYCYCLINE HYCLATE 100 MG CAP/TAB PO SCH (11:15)
[2019-01-06 12:22] VITALS: BP 103/53
[2019-01-06] MEDS ORDERED: PROPAFENONE HCL 150 MG TAB PO SCH (14:00)
--- NOTE | 2019-01-06 14:03 | GCON ---
[f rep st] CONSULTATION DATE OF CONSULTATION: 01/06/2019 REFERRING PHYSICIAN: Roro Schulz MD CHIEF COMPLAINT: Rectal bleeding. HISTORY OF PRESENT ILLNESS: I am asked to see this patient consultation by Dr. Schulz for chief complaint of GI bleed. 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 First bleed at our center was in November of 2014, treated with endoscopic clipping. She then had repeat current bleeding in February in 2017, also requiring clipping; however, at the time, she was also on Xarelto for underlying atrial fibrillation. Patient then underwent Watchman procedure. She is off Xarelto, but now on Plavix. Been having some lower abdominal pain, was seen in the office recently and treated empirically for pouchitis with metronidazole at that time. Flexible sigmoidoscopy was offered to the patient; however, she declined due to being on Plavix and wanted to wait until the summer when she is off her Plavix. She then developed bright red blood last evening, associated with clots, presented to the emergency room. Discussion with emergency room last evening, I recommend the patient have a GoLYTELY prep for the procedure in the morning; however, patient did not receive her prep until this morning and then refused to take it initially, and unfortunately, the procedure had to be canceled for today; however, she does note that there has been no further bleeding since last night. ALLERGIES: To iodine and sulfa. HOME MEDICATIONS: Metronidazole, aspirin, spironolactone, Lasix, Plavix. PAST MEDICAL HISTORY: Notable for ulcer colitis, status post colectomy with ileal J-pouch, history of pouchitis with GI bleeding in 2014 and 2017. Patient with atrial fibrillation, now on Plavix, no longer requiring anticoagulation. Patient has obstructive sleep apnea and requires CPAP, history of rheumatic fever. FAMILY HISTORY: No history of GI malignancy. SOCIAL HISTORY: Patient lives alone, was to travel to visit her sister today. REVIEW OF SYSTEMS: I performed a complete review of systems, which is negative , except for the pertinent positives, negatives noted in the HPI. PHYSICAL EXAM: VITAL SIGNS: Afebrile at 36.6, BP 108/59, pulse 73. GENERAL: She is alert and oriented. HEENT: Eyes, no scleral icterus. HENT: No oral lesions. CARDIOVASCULAR: Regular rhythm. CHEST: Clear to auscultation. ABDOMEN: Obese, soft, nontender. NEUROLOGIC: Nonfocal. SKIN: No lesions. LABORATORY DATA: From midnight, her hematocrit was 39.9 with hematocrit of 13.1 , white light white count of 8, and platelets of 323. BUN normal at 15 with creatinine of 0.8. ASSESSMENT: Patient with lower gastrointestinal bleed. Although hemodynamically stable, this is most likely again coming from her pouch as she does have history of pouchitis with ulcers. She has had a history of significant gastrointestinal bleeding previously, although at that time, was on Xarelto. At this point, her bleeding is hemodynamically stable and has a normal hematocrit. Plan was to do a pouchoscopy today for possible treatment; however, patient was not able to do the prep, and as she has just recently taken p.o., would be unable to provide sedation; therefore, pouchoscopy is canceled for today. Her bleeding has stopped. Did have a thorough discussion with the patient that if the bleeding clinically is consistent with minor bleed likely ooze from inflammation and she would be okay for discharge; however, if she has had a significant drop in her hematocrit or recurrent bleeding, then I would recommend prep today for possible lower endoscopy. PLAN: Will check CBC now, and if a significant drop in hematocrit or she notes recurrent bright red blood, then recommend proceed with prep today for lower endoscopy likely tomorrow. If her hematocrit is normal, patient could have option of continuing to treat for pouchitis and discharge home with close GI follow up. Thank you for this consult. /[id number]/MODL MTDD
--- NOTE | 2019-01-06 15:19 | ASDISCHSUM ---
Discharge Information Plan Status:Home with No Needs Medically Cleared to Leave:01/06/2019 Discharge Date:01/06/2019 CM D/C Disposition:Home, Routine, Self-Care ADT D/C Disposition:Home, Routine, Self-Care Projected Discharge Date:01/06/2019 Transportation at D/C:Family Discharge Delay Reason: Follow-Up Date:01/06/2019 Discharge Slot: Final Diagnosis: Placement Information Patient Contact Information Contact Name:JR Relationship:Daughter Address:[address] [place] [address] City:[place] Alternate Phone: [facility]/Zip Code:[place] [address] Email: Financial Information Financial Class:Medicare Primary Plan Desc:MEDICARE OUTPATIENT Primary Plan Number:[id number] Secondary Plan Desc:JENNIFER/MAUDE SUPPLEMENT Secondary Plan Number:[id number] Assessment Information LACE LACE Length of stay for Answers: Less than 1 day current admission Acuity / Level of Answers: No Care: Did the patient have an inpatient admission? Comorbidities - select Answers: Other Notes: AFib; Ulcerative coliti s all that apply # of Emergency department Answers: 1-2 visits in the last 6 months Score: 2 Date Signed: 01/06/2019 03:18 PM Electronically Signed By:COOPER Dowd Intervention Information Intervention Type:*Incorrect Registration Date of Service:01/06/2019 09:26 AM Patient Type:Inpatient Staff Member:Gabby Levine Hours: Discipline: Severity: Comment: Intervention Type:*KELLY-Signed Date of Service:01/06/2019 12:19 PM Patient Type:Observation Staff Member:Venus Williamson Hours: Discipline: Severity: Comment:
--- NOTE | 2019-01-06 16:20 | GDS ---
[f rep st] DISCHARGE SUMMARY A 73-year-old female with history of lower GI bleed from pouchitis, associated with ulceration. First bleed was in November 2014, treated with endoscopic clipping. She had recurrent bleeding in February 2018, requiring clipping, but at that time she was also on Xarelto for atrial fibrillation. She then underwent Watchman procedure. She is off Xarelto now, but now on Plavix. She has been having some lower abdominal pain, was seen in the office recently, treated empirically for pouchitis with Flagyl at that time. Flex sigmoidoscopy was offered to the patient; however, she declined due to being on Plavix and wanted to wait until the summer. She then developed bright red blood per rectum starting yesterday afternoon, associated with clots. She was unable to complete a GoLYTELY prep here; thus, the procedure was aborted. She would like to go home since she is not having frequent stools. Repeat H and H have been stable. HOSPITAL COURSE BY PROBLEM: 1. Hematochezia: History of pouchitis with ulceration. Colonoscopy was aborted , because prep not completed. H/H stable;okay for DC per Dr. Araujo. Continue Flagyl for pouchitis. 2. Atrial fibrillation: Status post Watchman procedure. Continue Rythmol. 3. Right leg cellulitis: Add doxycycline for 5 days. DISCHARGE DIAGNOSES: 1. Hematochezia: 2. History of ulcerative colitis: s/p colectomy complicated by pouchitis. 3. Paroxysmal atrial fibrillation, status post Watchman on Plavix. Resume in a couple of days given risk of bleeding. 4. Obstructive sleep apnea on CPAP. 5. History of rheumatic fever. 6. Right lower extremity cellulitis. DISPOSITION: Patient is stable for discharge home. NEW MEDICATIONS: Doxycycline 100 mg x5 days. FOLLOWUP: 1. Dr. Araujo. 2. Primary care physician. Risks of bleeding were explained to the patient and she acknowledged. PHYSICAL EXAMINATION: VITAL SIGNS: Today, temperature 36.7, blood pressure 103 /53, heart rates in the 60s, respirations 16, 95% on room air. GENERAL: Sitting up in bed, no acute distress. HEENT: PERRLA. Moist mucous membranes. CV: Regular rate and rhythm. LUNGS: Clear. ABDOMEN: Soft, nontender. Positive bowel sounds. : No Kyle. MUSCULOSKELETAL: 5/5 upper and lower extremity strength. NEURO: 2 through 12 intact. PSYCH: Alert and oriented x3. Time spent on discharge greater than 30 minutes bedside, educating patient and coordinating plan. /[id number]/MODL MTDD
--- NOTE | 2019-01-06 16:38 | ASMTDCNOTE ---
Case Management Discharge Discharge Order Complete? Answers: Yes Patient to Obtain Answers: Independently Medications Transportation Arranged Answers: Family/Friends Discharge Comments Notes: Pt was admitted with a lower GI bleed and abdominal pain. She lives alone in [place] and has a daughter local. She has been medically cleared and is discharging home today with no CM needs. Date Signed: 01/06/2019 04:38 PM Electronically Signed By:COOPER Dowd
--- NOTE | 2019-01-07 05:34 | CPEKG ---
Test Reason : OPEN Blood Pressure : / mmHG Vent. Rate : 072 BPM Atrial Rate : 074 BPM P-R Int : 189 ms QRS Dur : 077 ms QT Int : 522 ms P-R-T Axes : 066 -19 -14 degrees QTc Int : 572 ms Sinus rhythm Atrial premature complexes Borderline left axis deviation Low voltage, precordial leads Borderline T abnormalities, diffuse leads Prolonged QT interval Confirmed by Elena Paul ([id number]) on 01/07/2019 5:33:46 AM Referred By: Elena Paul Confirmed By:Elena Paul
[2019-01-07] MEDS ORDERED: Herbals/Supplements -Info Only PO SCH (09:00)
[2019-01-07] MEDS ORDERED: CHOLECALCIFEROL VIT D3 2,000 UNITS TAB/CAP PO SCH (09:00)
== END 2019-01-06 15:38 | disposition home or self-care (01) ==
LOC: INTOOBSV 01-06 01:30 → F1N 01-06 03:42
PROVIDERS: ADMIT Family Medicine; ATTEND Family Medicine
DX: K92.1 Melena (principal); R10.32 Left lower quadrant pain; E86.9 Volume depletion, unspecified; K51.90 Ulcerative colitis, unspecified, without complications; K91.850 Pouchitis; I48.0 Paroxysmal atrial fibrillation; L03.115 Cellulitis of right lower limb; G47.33 Obstructive sleep apnea (adult) (pediatric); Z79.01 Long term (current) use of anticoagulants; Z90.49 Acquired absence of other specified parts of digestive tract; Z86.19 Personal history of other infectious and parasitic diseases; Z88.2 Allergy status to sulfonamides
CPT/HCPCS: 93005; 96361; 96374; 96375; 96376; 99285; G0378; J0696

== ENCOUNTER 2019-03-27 06:51 | Observation (INO) | payer OTHER, MEDICARE | END 2019-03-28 15:51 | disposition home or self-care (01) | LOC: F3E 12:53 ==

== ENCOUNTER → 2019-04-14 | Outpatient (CLI) | payer OTHER, MEDICARE | LOC: FIMAGING 18:37 ==